=== PATIENT | female | born 1950 | race Caucasian/White ===

== ENCOUNTER → 2018-07-18 10:35 | Outpatient (CLI) | payer MEDICARE, OTHER, SELFPAY ==
--- NOTE | 2018-07-18 10:49 | BI_ITS ---
MAMMOGRAPHY - BILATERAL SCREENING REASON FOR EXAM: Female, 68 years old. Routine annual screening examination. PERTINENT HISTORY: Non-contributory. TECHNIQUE: Digital bilateral breast alberto (3D mammographic acquisition) in the CC and MLO projections. 2-D mediolateral oblique (MLO) and craniocaudad (CC) views of both breasts were obtained. CAD: Full Field Digital Mammography with Computer Added Detection was performed. COMPARISON: Comparison is made with prior study dated June 30, 2017 and June 22, 2016. FINDINGS: Breast Composition: There are scattered areas of fibroglandular density. There are no dominant masses or suspicious calcifications. Stable small bilateral axillary lymph nodes. No other significant abnormalities are identified. There has been no significant change since the prior study. BI/SCREENING MAMM (CAD), BILAT IMPRESSION: Stable bilateral screening mammogram. Yearly follow-up mammogram recommended. (A) ASSESSMENT CATEGORY: BIRADS Category 2: Benign. A letter regarding these results will be sent to the patient by the facility within 30 days. Approximately 10% of breast cancers are not detected by mammography. A normal mammogram should not delay biopsy of a clinically suspicious abnormality. [id number] Electronically Signed: William Parker MD at 14:17 EST , Service support ,
== END ==
PROVIDERS: Family Provider Family Medicine; PCP Family Medicine; Referring Provider Obstetrics & Gynecology; Visit Provider Obstetrics & Gynecology
DX: Z12.31 Encounter for screening mammogram for malignant neoplasm of breast (principal)
CPT/HCPCS: 77063; 77067

== ENCOUNTER → 2019-04-12 15:20 | Outpatient (CLI) | payer MEDICARE, OTHER, SELFPAY | PROVIDERS: Family Provider Family Medicine; PCP Family Medicine; Visit Provider Family Medicine | DX: N39.0 Urinary tract infection, site not specified (principal) | CPT/HCPCS: 87086; 87088 ==

== ENCOUNTER → 2019-05-06 15:35 | Outpatient (CLI) | payer MEDICARE, OTHER, SELFPAY ==
--- NOTE | 2019-05-06 15:37 | CT_ITS ---
STUDY: CT ABDOMEN AND PELVIS WITH CONTRAST REASON FOR EXAM: Female, 69 years old. Abdominal pain for 2 weeks RADIATION DOSAGE (If Supplied By Facility): CTDIvol = ( 13.53 ) mGy, DLP = ( 716.40 ) mGycm TECHNIQUE: CT images were obtained from the dome of the diaphragm to the symphysis pubis without oral contrast. IV/Oral Isovue 300 100 was administered. Sagittal and coronal images were reconstructed. Individualized dose optimization techniques were used for this CT. COMPARISON: None. FINDINGS: The visualized lung bases are unremarkable. The visualized portions of the heart are within normal limits. Normal liver. Normal gallbladder and extrahepatic biliary system. Normal spleen. Normal pancreas. Normal bilateral adrenal glands. Normal right kidney. Normal left kidney. There is a benign left renal cyst. There is no intestinal obstruction. There is diverticulosis without diverticulitis of the sigmoid. Normal abdominal aorta. Normal inferior vena cava. Normal retroperitoneum. Normal urinary bladder. Uterus is surgically removed. Normal abdominal wall. Normal osseous structures. 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 CT/Abdomen/Pelvis WITH Contrast IMPRESSION: 1. No acute abdominal findings. 2. Sigmoid diverticulosis without diverticulitis. Electronically Signed: Haja Arora, at 16:07 EST Tel , Service support ,
[2019-05-06 15:51] LABS: CREATININE FINGERSTICK 0.8 mg/dL (0.55-1.02); EGFR FINGERSTICK > 60.0000 mL/min (>60)
== END ==
PROVIDERS: Family Provider Family Medicine; PCP Family Medicine; Referring Provider Family Medicine; Visit Provider Family Medicine
DX: Z01.812 Encounter for preprocedural laboratory examination (principal); R10.32 Left lower quadrant pain; R10.31 Right lower quadrant pain; R10.2 Pelvic and perineal pain
CPT/HCPCS: 74177; Q9967

== ENCOUNTER → 2020-02-14 12:09 | Outpatient (CLI) | payer MEDICARE, OTHER, SELFPAY ==
--- NOTE | 2020-02-14 12:33 | BI_ITS ---
MAMMOGRAPHY - BILATERAL SCREENING REASON FOR EXAM: Female, 69 years old. Routine annual screening examination. PERTINENT HISTORY: Non-contributory. TECHNIQUE: Digital bilateral breast luiz (3D mammographic acquisition) in the CC and MLO projections. 2-D mediolateral oblique (MLO) and craniocaudad (CC) views of both breasts were obtained. CAD: Full Field Digital Mammography with Computer Added Detection was performed. COMPARISON: Comparison is made with prior study dated 07/18/2018 and 06/30/2017. FINDINGS: Breast Composition: There are scattered areas of fibroglandular density. There are no dominant masses or suspicious calcifications. Stable benign appearing bilateral axillary lymph nodes. No other significant abnormalities are identified. There has been no significant change since the prior study. BI/SCREEN MAMM (CAD) W/LUIZ BILAT IMPRESSION: Stable bilateral screening mammogram. Yearly follow-up mammogram recommended. (A) ASSESSMENT CATEGORY: BIRADS Category 2: Benign. A letter regarding these results will be sent to the patient by the facility within 30 days. Approximately 10% of breast cancers are not detected by mammography. A normal mammogram should not delay biopsy of a clinically suspicious abnormality. [id number] Electronically Signed: William Parker, at 13:29 EDT , Service support ,
== END ==
PROVIDERS: PCP Family Medicine; Referring Provider Family Medicine; Visit Provider Family Medicine
DX: Z12.31 Encounter for screening mammogram for malignant neoplasm of breast (principal)
CPT/HCPCS: 77063; 77067

== ENCOUNTER → 2020-08-11 09:12 | Outpatient (CLI) | payer MEDICARE, OTHER, SELFPAY ==
[2020-08-11 12:40] LABS: Cholesterol 201 mg/dL (200); High Density Lipoprotein 51 mg/dL; Triglycerides 161 mg/dL; Very Low Density Lipoprotein 32 mg/dL (5-40)
== END ==
PROVIDERS: PCP Family Medicine; Visit Provider Family Medicine
DX: E78.5 Hyperlipidemia, unspecified (principal); R73.01 Impaired fasting glucose
CPT/HCPCS: 36415; 80061; 84443

== ENCOUNTER 2021-02-01 11:00 | Outpatient (RCR) | payer MEDICARE, OTHER, SELFPAY ==
[2020-12-31 13:49] VITALS: BMI 25.6
--- NOTE | 2021-01-08 15:32 | HP.PTEVAL ---
Patient's Visit Information ROMY FAGAN is a 70 year old F referred to Physical Therapy by ANGELIA Pires with a diagnosis of RIGHT HAMSTRING TENDONITIS. Date of Evaluation: 01/08/21 Physical Therapist: Ayanna Cesar, PT, Cert MDT - Visit Plan Frequency: 2-3x /Week Duration: 4-6 Weeks Plan: RIGHT KNEE US, POSTURE CORRECTION/STRENGTHENING, INSTRUCTION IN APPROPRIATE BODY MECHANICS AND ACTIVITY MODIFICATIONS. DLS STARTING WITH A NEUTRAL SPINE PROGRESSING ROM TOLERATED. DANETTE LE ROM, STRETCHING AND STRENGTHENING. HEP INSTRUCTION. - Subjective Work/Leisure: RETIRED. Disability: NO. Present symptoms: RIGHT POSTERIOR KNEE PAIN AND TIGHTNESS/PULL. DENIES LOW BACK PAIN. Present since: A COUPLE WKS AGO. Pain Scale: WORST 7-8/10 LEAST 0/10. Currently: 3-4/10. Commenced as a result of: NO APPARENT REASON. Symptoms at onset: TUGGING BEHIND KNEE - CONSTANT. Worse: WALKING, UP AND DOWN STEPS. Better: RECLINER, WRAPPING IT, ICE, IBUPROFEN. Disturbed sleep: NOT LATELY. Previous history/Previous treatment: ABOUT A YEAR AGO STEPPED OUT HIGH FRONT DOOR STEP, STARTED TO FALL AND CAUGHT HERSELF WITH HER RIGHT LEG AND PULLED IT. HAD PT AT THE TIME AND INTERMITTENT FLARE UPS WITH INCREASED OUT OF THE ORDINARY ACTIVITIES. PT HELPED BUT STILL GETS FLARE UPS. NO FALLS. HAS HAD TO LIMIT WALKS TO ABOUT 1 MILE BUT DOES 4 MILES. NO RIGHT KNEE SURGERY. CORTISONE SHOT RIGHT KNEE - HELPED TEMPORARILY. HISTORY OF LOW BACK PAIN BUT BACK HAS BEEN GOOD FOR A COUPLE YEARS NOW. Gait: PATIENT REPORTS IT IS PACE AND DISTANCE LIMITED BUT IS NOW FEELING BACK TO HER NORMAL SHORT DISTANCES ON LEVEL SURFACES. Unexplained weight loss: NO. Imaging: RECENT RIGHT KNEE X-RAY: IMPRESSION: . Right knee intact. . Mild degenerative changes. . Mild soft tissue swelling with small joint effusion. . Electronically Signed: Sebastian Valdes DO. PMH: UNREMARKABLE EXCEPT VERTIGO - Objective THIS PATIENT AMBULATES INDEP'LY INTO PT WITH DECREASED CADANCE, DECREASED DANETTE STRIDE LENGTH BUT NO LIMP, NO AD AND NO LOB. Motor deficit: LLE 5/5 EXCEPT HIP 4/5. RIGHT LE: HIP 4-/5, KNEE EXT 4-/5, KNEE FLEX 3+/5, ANKLE DORSIFLEX 5/5, ANKLE PLANTAR FLEX 4/5. PATIENT C/O RIGHT MEDIAL AND POSTERIOR KNEE PAIN WITH ALL RIGHT LE MMT'ING EXCEPT ANKLE DORSI-FLEXION. Sensory deficit: DANETTE LE LIGHT TOUCH SENSATION INTACT AND SYMMETRICAL. ROM deficit: FULL EXTENSION TO 130 DEG KNEE FLEXION IN SUPINE DANETTE WITH A HEEL SLIDE BUT C/O ERP RIGHT AND NOT LEFT. Reflexes: NT. Lumbar mvmt loss: flex - NIL. ext - MOD TO THA. R SG - THA. L SG - THA. PATIENT DENIES PAIN WITH LB ROM TESTING ALL PLANES. Core strength: POOR. Palpation: TENDERNESS WITH PALPATION OF THE MEDIAL AND POSTEROMEDIAL ASPECTS OF RIGHT KNEE. MILD RIGHT KNEE EDEMA COMPARED TO LEFT. OTHER: PATIENT GOT DIZZY WHEN SHE TRIED TO LAY FLAT ON HER BACK FOR TESTING BUT RESOLVED QUICKLY WITH ELEVATING HEAD. PATIENT WITH C/O INCREASED RIGHT KNEE PAIN AFTER KNEE TESTING TODAY BUT RELIEVED WITH US AND PATIENT REPORTED HER KNEE FEELING LOOSER POST SESSION. TREATMENT: RIGHT POSTEROLATERAL KNEE US AT 1.3 W/CM2 X 8 MIN AT 50% IN SITTING. - Goals Goal 1:: DECREASE C/O RIGHT KNEE PAIN Goal Time Frame: 4-6 Weeks Goal 2:: IMPROVE STANDING, WALKING AND ADL FUNCTION Goal Time Frame: 4-6 Weeks Goal 3:: INSTRUCT IN PROPHYLAXIS Goal Time Frame: 4-6 Weeks - Anticipated Interventions Patient/Client Instruction: Educate patient on: Condition, Plan of Care, Risk Factors For the Purpose of:: To improve self management Therapeutic Exercise to Include: Strength training, Body mechanics, Postural training, Flexibilty training, Neuromotor development, Dynamic Lumbar Stabilization For the Purpose of:: To decrease pain, To improve muscle performance and motor function, To increase tolerance to activity/condition/position, To improve ability of physical actions for home/community/work/leisure, To improve gait and locomotor functions Cryotherapy (ice pack, ice massage): Yes Thermo therapy (hot pack): Yes Ultrasound (thermal/non thermal): Yes For the Purpose of:: To decrease pain, To improve muscle performance and motor function, To increase tolerance to activity/condition/position, To improve ability of physical actions for home/community/work/leisure, To improve gait and locomotor functions Thank you for the opportunity to evaluate your patient. For Medicare and Medicare HMO plans, please review the plan of care and approve it. It will need to be FAXED BACK to us at [phone] for Medicare purposes. For Medicare only, by signing this I certify the plan of care. Please let me know if there are questions or concerns regarding this plan of care. Physician Signature: Date:
--- NOTE | 2021-02-01 11:51 | HP.PTDCSUM ---
It has been my pleasure to treat ROMY FAGAN referred by ANGELIA Pires, with the diagnosis of RIGHT HAMSTRING TENDONITIS for a total of 9 visit(s). Discharge Date: 02/01/21 Please see the following information for a summary of their discharge status. Subjective: PATIENT REPORTS HER KNEE IS A LOT BETTER. STATES THE PAIN ISN'T WAKING HER UP AT NIGHT NOW AND SHE CAN WALK ABOUT 1.5 NOW LIKE SHE DID BEFORE HER KNEE FLARED UP. STATES HER KNEE STILL GETS TIGHT AND ACHES SOMETIMES BUT IT IS MUCH BETTER. R knee pain Pain Intensity (Out of 10): 0 % Improvement: 90 Objective/Function: PATIENT WAS SEEN TODAY FOR RE-ASSESSMENT OF PROGRESS TOWARD THE SET PT GOALS AND THE NEED FOR FURTHER PHYSICAL THERAPY VS READINESS FOR DISCHARGE. UPON EXAM TODAY ALL GOALS HAVE BEEN MET. DANETTE LE ROM AND STRENGTH IS WFL NOW AND PATIENT DENIES R KNEE PAIN WITH TESTING TODAY EXCEPT SOME RIGHT KNEE DISCOMFORT IN FULL RIGHT KNEE FLEX. Goal 1:: DECREASE C/O RIGHT KNEE PAIN Goal Progress: Goal Met Goal 2:: IMPROVE STANDING, WALKING AND ADL FUNCTION Goal Progress: Goal Met Goal 3:: INSTRUCT IN PROPHYLAXIS Goal Progress: Goal Met Plan: D/C. PATIENT AGREEABLE. If there are questions or concerns regarding this patient's physical therapy, please feel free to call me at [phone]. Thank you for the referral of this patient. Sincerely, Ayanna Cesar, PT, Cert MDT Balance/Gait/Functional tests - Balance/Special Test Scores Lower Extremity Functional Score: 73
== END 2021-02-01 15:51 | disposition home or self-care (01) ==
LOC: PT 11:00
PROVIDERS: PCP Family Medicine
DX: M76.891 Other specified enthesopathies of right lower limb, excluding foot (principal)
CPT/HCPCS: 97035; 97110; 97162; 97164

== ENCOUNTER → 2021-04-30 09:54 | Outpatient (CLI) | payer MEDICARE, OTHER, SELFPAY ==
--- NOTE | 2021-04-30 10:18 | BI_ITS ---
MAMMOGRAPHY - BILATERAL SCREENING REASON FOR EXAM: Female, 71 years old. Routine annual screening examination. PERTINENT HISTORY: Non-contributory. TECHNIQUE: Digital bilateral breast luiz (3D mammographic acquisition) in the CC and MLO projections. 2-D mediolateral oblique (MLO) and craniocaudad (CC) views of both breasts were obtained. CAD: Full Field Digital Mammography with Computer Added Detection was performed. COMPARISON: Comparison is made with prior study dated 02/14/2020 and 07/18/2018. FINDINGS: Breast Composition: There are scattered areas of fibroglandular density. There are no dominant masses or suspicious calcifications. Stable benign-appearing bilateral axillary lymph nodes. No other significant abnormalities are identified. There has been no significant change since the prior study. BI/SCRN MAMM (CAD)W/LUIZ BILAT IMPRESSION: Stable bilateral screening mammogram. Yearly follow-up mammogram recommended. (A) ASSESSMENT CATEGORY: BIRADS Category 2: Benign. A letter regarding these results will be sent to the patient by the facility within 30 days. Approximately 10% of breast cancers are not detected by mammography. A normal mammogram should not delay biopsy of a clinically suspicious abnormality. [id number] Electronically Signed: William Parker MD at 11:07 EST , Service support ,
== END ==
PROVIDERS: PCP Family Medicine; Referring Provider Family Medicine; Visit Provider Family Medicine
DX: Z12.31 Encounter for screening mammogram for malignant neoplasm of breast (principal)
CPT/HCPCS: 77063; 77067

== ENCOUNTER → 2024-10-28 | Outpatient (CLI) | payer MEDICARE, OTHER, SELFPAY | END | disposition home or self-care (01) | LOC: LABSPEC 12:17 | PROVIDERS: PCP Family Medicine; Referring Provider Nurse Practitioner Family; Visit Provider Nurse Practitioner Family | DX: N39.0 Urinary tract infection, site not specified (principal) | CPT/HCPCS: 87086; 87088; 87186 ==

== ENCOUNTER → 2025-04-18 | Outpatient (CLI) | payer MEDICARE, OTHER, SELFPAY ==
[2025-04-18 12:22] LABS: Hematocrit 39.0 % (37-47); Hemoglobin 13.1 g/dL (12.0-15.0); Immature Granulocytes Count 0.020 X10^3/uL (0.0-0.0); Mean Corp Hgb Conc 33.6 g/dL (32-36); Mean Corpuscular Volume 91.8 fL (81-99); Mean Platelet Vol. 11.4 fl (6.2-12.0); NRBC Flagged by Analyzer 0 % (0-5); Platelet Count 301 K/mm3 (150-450); RBC Distribution Width CV 13.7 % (11.6-14.6); RBC Distribution Width SD 46.4 fl (35.1-43.9); Red Blood Count 4.25 M/mm3 (4.2-5.4); White Blood Count 6.2 K/mm3 (4.4-11.0)
[2025-04-18 13:01] LABS: AST(SGOT) 18 U/L (<=31); Alanine Aminotransfer ALT/SGPT 10 U/L (<=34); Albumin, Serum 4.1 g/dL (3.4-4.8); Alkaline Phosphatase 84 U/L (35-104); Anion Gap 12 (5-15); BUN 15 mg/dL (4-19); BUN/Creat Ratio 17.1 RATIO (10-20); Calcium,Total 9.4 mg/dL (7.6-11.0); Carbon Dioxide 21.4 mmol/L (21.0-32.0); Chloride 106 mmol/L (98-108); Cholesterol 190 mg/dL (<=200); Globulin 2.9 g/dL (2.2-4.2); Glucose 107 mg/dL (70-99); Low Density Lipoprotein Calc. 120 mg/dL; Potassium 3.6 mmol/L (3.3-5.1); Triglycerides 112 mg/dL; Very Low Density Lipoprotein 22 mg/dL (5-40); cholesterol:hdl ratio screen 3.78
== END | disposition home or self-care (01) ==
LOC: BFHLAB 10:42
PROVIDERS: PCP Nurse Practitioner Family; Visit Provider Nurse Practitioner Family
DX: R73.01 Impaired fasting glucose (principal); I10 Essential (primary) hypertension; E78.5 Hyperlipidemia, unspecified
CPT/HCPCS: 36415; 80053; 80061; 83036; 85025